=== PATIENT | female | born 1960 | race Caucasian/White ===

== ENCOUNTER 2016-10-29 21:30 | Emergency (ER) | payer BC, MEDICARE ==
[2016-10-29 22:00] VITALS: BP 149/84
[2016-10-29] MEDS ORDERED: HYDROmorphone 1 MG/ML Syringe IM ONE (22:20)
[2016-10-29] MEDS ORDERED: methylPREDNISolone Sodium Succinate 125 MG/2 ML SDV IM ONE (22:21)
--- NOTE | 2016-10-29 22:43 | EDM.PDOC ---
[id number] NECK PAIN Time Seen by Provider: 10/29/16 22:10 Source of Information: Reports: Patient, Family History Limitations: Reports: No Limitations - History of Present Illness INITIAL COMMENTS - FREE TEXT/NARRATIVE: 56-year-old female who woke up this morning with a pinch and a sharp pain in her left neck and as the day has gone on it has gotten much worse. It is now extending into her left shoulder and hurts with movement of the arm or the neck. No trauma, no fever, no illness or shortness of breath. Onset: Gradual Location: Reports: Neck, Back, Upper Extremity, Left Quality: Reports: Sharp, Stabbing Severity: Severe Worsens with: Reports: Movement Associated Symptoms: Reports: No Other Symptoms Neck Pain Score (Numeric/FACES): 9 - Related Data Allergies Allergy/AdvReac Type Severity Reaction Status Date / Time clindamycin Allergy Joint Pain Verified 10/19/15 15:35 erythromycin base Allergy Joint Pain Verified 10/19/15 15:35 Penicillins Allergy Seizure Verified 10/19/15 15:35 Sulfa (Sulfonamide Allergy Cannot Verified 10/19/15 15:35 Antibiotics) Remember Home Meds: Home Meds DULoxetine [Cymbalta] 60 mg PO DAILY 10/19/15 [History] Ibuprofen 1 tab PO BID 10/19/15 [History] rOPINIRole [Requip] 2 mg PO BEDTIME 10/19/15 [History] traZODone 50 mg PO BEDTIME 10/19/15 [History] Methocarbamol [Robaxin] 10/29/16 [History] Past Medical History Gastrointestinal History: Reports: Gastritis [employer] History: Reports: Musculoskeletal History: Reports: Fracture Other Musculoskeletal History: FX Back Psychiatric History: Reports: Depression Hematologic History: Reports: Blood Transfusion(s) - Infectious Disease History Infectious Disease History: Reports: Chicken Pox - Past Surgical History GI Surgical History: Reports: Cholecystectomy Female Surgical History: Reports: Other (See Below) Other Musculoskeletal Surgeries/Procedures:: left ankle surgery Social & Family History - Tobacco Use Smoking Status *Q: Never Smoker Second Hand Smoke Exposure: No - Caffeine Use Caffeine Use: Reports: Soda - Alcohol Use Days Per Week of Alcohol Use: 7 Number of Drinks Per Day: 1 Total Drinks Per Week: 7 - Recreational Drug Use Recreational Drug Use: No ED ROS GENERAL - Review of Systems Review Of Systems: See Below Constitutional: Denies: Fever, Chills Respiratory: Denies: Shortness of Breath, Cough Cardiovascular: Denies: Chest Pain GI/Abdominal: Denies: Abdominal Pain, Nausea, Vomiting Skin: Reports: No Symptoms. Denies: Rash ED EXAM, UPPER BACK/NECK PAIN - Physical Exam Exam: See Below Exam Limited By: No Limitations General Appearance: Alert, Moderate Distress (Looks very uncomfortable) Head Exam: Atraumatic Neck Exam: Other (Marked tenderness to palpation along the left paracervical and trapezius area. Increased pain with rotation of the head to the left against resistance. No rash over the sore area.) Extremities: Other (Pain with abduction of the left arm but no neurologic deficit or weakness) Skin Exam: Normal Color, Warm/Dry Course - Vital Signs Last Recorded V/S: Last Vital Signs Temp 98.8 F 10/29/16 22:04 Pulse 89 10/29/16 22:04 Resp 24 H 10/29/16 22:04 BP 149/84 H 10/29/16 22:04 Pulse Ox 96 10/29/16 22:04 - Orders/Labs/Meds Meds: Medications Discontinued Medications Generic Name Dose Route Start Last Admin Trade Name Freq PRN Reason Stop Dose Admin Hydromorphone HCl 1 mg 10/29/16 22:20 10/29/16 22:29 Dilaudid IM 10/29/16 22:21 1 mg ONETIME ONE Administration Methylprednisolone Sodium Succinate 125 mg 10/29/16 22:21 10/29/16 22:28 Solu-Medrol IM 10/29/16 22:22 125 mg ONETIME ONE Administration - Re-Assessments/Exams Free Text/Narrative Re-Assessment/Exam: 10/29/16 22:36 Patient was given 125 mg of Solu-Medrol and 1 mg of Dilaudid IM. She was also given 10 hydrocodone to take for the next 24-48 hours and encouraged to increase activity as tolerated. She can return if not improving after 2-3 days or anytime sooner if worsening. Departure - Departure Time of Disposition: 22:50 Disposition: Home, Self-Care 01 Condition: Good Clinical Impression: Neck pain on left side - Discharge Information Instructions: Musculoskeletal Pain Referrals: PCP,None [Primary Care Provider] - Forms: ED Department Discharge Care Plan Goals: Continue with gentle range of motion, heat may help, and ibuprofen or naproxen along with your muscle relaxers. Add stronger pain medication as prescribed and recheck in 2-3 days if not improving satisfactorily.
== END 2016-10-29 22:50 | disposition home or self-care (01) ==
LOC: JP.ED 21:30
DX: M54.2 Cervicalgia (principal); F41.9 Anxiety disorder, unspecified; Z88.0 Allergy status to penicillin; Z88.1 Allergy status to other antibiotic agents; Z88.2 Allergy status to sulfonamides; Z79.899 Other long term (current) drug therapy; Z90.49 Acquired absence of other specified parts of digestive tract; Z98.890 Other specified postprocedural states
CPT/HCPCS: 96372; 99283; J1170; J2930